=== PATIENT | male | born 1970 | race Two or more races ===

== ENCOUNTER 2022-09-28 00:52 | Inpatient (IN) | payer MEDICAID, OTHER ==
[~2022-09-28] VITALS: Ht 177.8 cm; Wt 83.9 kg
[2022-09-28] MEDS ORDERED: LORAZEPAM 1 MG TABLET PO ONE (01:00)
--- NOTE | 2022-09-28 01:00 | NUR ---
BIBRA 39 FROM [place] FOR L ARM TWICHING. A, OX4 ON TRIAGE. PATIENT IS RESPONSIVE TO VERBAL/NON VERBAL STIMULI. WITH UNCONTROLABLE TWITCHING. PLACED COMFORTABLY IN BED. ATTACHED TO MONITOR. VITALS CHECKED.
[2022-09-28] MEDS ORDERED: LORAZEPAM INJ 2 MG/ML VIAL ONE ×2 (01:06→03:08)
--- NOTE | 2022-09-28 01:15 | NUR ---
EKG DONE AT BEDSIDE.
[2022-09-28] MEDS ORDERED: LORAZEPAM INJ 2 MG/ML VIAL IV ONE ×2 (01:30→03:30)
--- NOTE | 2022-09-28 01:30 | NUR ---
IV CAROL G20 INSERTED ON BOTH WRIST. BLOOD DRAWN AND SENT TO LAB
[2022-09-28 01:33] LABS: BASOPHILS % (AUTO) 0.4 % (0.0-2.0); EOSINOPHILS % (AUTO) 2.3 % (0.0-6.0); HEMATOCRIT 36 % (39-51); HEMOGLOBIN 12.2 g/dL (13.5-17.5); LYMPHOCYTES # (AUTO) 0.8 K/uL (0.8-4.8); MEAN CORPUSCULAR HGB CONC 34 g/dl (31.0-36.0); MEAN CORPUSCULAR VOLUME 84 fL (80-96); MONOCYTES # (AUTO) 0.4 K/uL (0.1-1.30); MONOCYTES % (AUTO) 4.1 % (2.0-12.0); NEUTROPHILS # (AUTO) 7.5 K/uL (1.8-8.9); NEUTROPHILS % (AUTO) 84.2 % (43.0-81.0); PLATELET COUNT (AUTO) 222 K/uL (150-450); RED BLOOD CELL COUNT(AUTO) 4.27 MIL/uL (4.5-6.0)
--- NOTE | 2022-09-28 01:35 | NUR ---
BROUGHT TO CT DEPT
--- NOTE | 2022-09-28 01:45 | NUR ---
COVID SWAB DONE AND SENT TO LAB.
[2022-09-28 02:07] LABS: CALCIUM, SERUM 9.3 mg/dL (8.5-10.1); CREATININE 1.5 mg/dL (0.6-1.3)
[2022-09-28 02:13] LABS: ALBUMIN 3.7 g/dL (3.4-5.0); BILIRUBIN,DIRECT 0.2 mg/dL (0.0-0.2); BILIRUBIN,TOTAL 0.5 mg/dL (0.2-1.0); TOTAL PROTEIN, SERUM 7.1 g/dL (6.4-8.2)
--- NOTE | 2022-09-28 02:44 | NUR ---
mother reports patient is still having jerking motion for 10-15 seconds at a time a few minutes apart. made aware.
--- NOTE | 2022-09-28 02:50 | NUR ---
patient asking for water. MD states ok to give water. swallowed water with no difficulty.
--- NOTE | 2022-09-28 03:05 | NUR ---
informed MD that patient had body jerking, more aggesively. MD will place orders.
--- NOTE | 2022-09-28 03:10 | NUR ---
patient mother refused ativan 2mg iv d/t patient history of drug abuse. made aware.
[2022-09-28] MEDS ORDERED: LEVETIRACETAM (500MG) 500 MG/5 ML VIAL IV ONE (03:11)
[2022-09-28] MEDS: LEVETIRACETAM (500MG) 1,000 MG in IV NS 0.9% 100 ML IV SCH ×2 (03:16→15:58)
--- NOTE | 2022-09-28 03:18 | NUR ---
SPOKE TO BRICE MCKEON TRAINING ENGINEER WHO IS WILLING TO TRANSFER PT TO [facility]; HOWEVER THE BED WILL NOT BE AVAILABLE UNTIL AFTER SHIFT CHANGE. REQUESTED BRICE AN ALTERNATIVE WAY , POSSIBLY AUTH TO ADMIT THE PATIENT AT [facility], TO AVAOID THE DELAY OF CARE. SHE WILL PRESENT THE CASE TO HER WELDING LEAD BURNER AND WILL GET PAIZ TO US.
[2022-09-28] MEDS ORDERED: TRAZ-182 PO (03:25)
[2022-09-28] MEDS ORDERED: FERR325T23 PO (03:25)
[2022-09-28] MEDS ORDERED: LISI40TA13 PO (03:25)
[2022-09-28] MEDS ORDERED: NIFE-34 PO (03:25)
[2022-09-28] MEDS ORDERED: LABE200T5 PO (03:25)
[2022-09-28] MEDS ORDERED: ATOR80TA PO (03:25)
[2022-09-28] MEDS ORDERED: CLOP75TA15 PO (03:25)
[2022-09-28] MEDS ORDERED: PANT40TA49 PO (03:25)
--- NOTE | 2022-09-28 03:55 | NUR ---
RECEIVED A CALL FROM CM OF REGAL "BRICE". PT IS FOR POSSIBLE ADMISSION AT [facility] BUT AT THE MOMENT NO BED AVAILABLE. THEY WILL TRY TO GET BED AFTER 0730H. PER CM, IF [facility] MD CANNOT WAIT TO TRANSFER THE PATIENT AND ADMITTED THE PT INSTEAD IN [facility], THEY HAVE NO CHOICE BUT TO GIVE US AUTH. I EXPLAINED TO MS NARVAEZ THAT POLICY, WE NEED AN AUTH FROM INSURANCE SO WE CAN PROCEED WITH THE ADMISSION. DR BOWENS IS MADE AWARE.
--- NOTE | 2022-09-28 04:51 | NUR ---
Motherdorota # [phone]. call when patient is being transferred/ updates. mother also request no addictive medications to be given to patient.
--- NOTE | 2022-09-28 05:59 | NUR ---
DR BOWENS ON THE PHONE WITH MIKE DALLAS
--- NOTE | 2022-09-28 06:33 | NUR ---
urine collected pending lab to worm picker
--- NOTE | 2022-09-28 07:20 | NUR ---
RECEIVED PT FROM ANISH BRIONES PT ASLEEPY ARUSABLE WHEN CALL NAME
[2022-09-28 07:49] LABS: BILIRUBIN,URINE NEGATIVE (NEGATIVE); COLOR,URINE YELLOW (YELLOW); LEUKOCYTE ESTERASE ,URINE NEGATIVE (NEGATIVE); NITRITE, URINE NEGATIVE (NEGATIVE); PROTEIN,URINE NEGATIVE (NEGATIVE); UGLUCOSE NEGATIVE (NEGATIVE); UROBILINOGEN,URINE 0.2 EU/dL (0.2)
--- NOTE | 2022-09-28 07:56 | NUR ---
BRICE [facility] [phone] REQUESTING COVID RESULT FAXED TO HER.
--- NOTE | 2022-09-28 08:42 | NUR ---
RESTING AND ASLEEPY NO SOB
--- NOTE | 2022-09-28 08:50 | NUR ---
DR. URRUTIA AT BEDSIDE
--- NOTE | 2022-09-28 09:16 | NUR ---
DANILO REGAL [phone]
--- NOTE | 2022-09-28 10:02 | NUR ---
WATING FOR HOSPITALE AND TRANSFER
--- NOTE | 2022-09-28 10:32 | NUR ---
MOTHER AT BED CONDTION UP DATE AND PLAN OF CARE
--- NOTE | 2022-09-28 11:27 | NUR ---
DANILO CALLED REGAL GIVING AUTH [id number] TELE BED.
--- NOTE | 2022-09-28 11:30 | NUR ---
CALLED DR. URRUTIA. WILL GIVE VERBAL ORDERS. REQUESTING CONSULT WITH DR. SOLITARIO
--- NOTE | 2022-09-28 11:34 | NUR ---
CALLED DR. SOLITARIO [phone] INFORMED ABOUT THE REQUEST OF CONSULT FROM DR. URRUTIA.
--- NOTE | 2022-09-28 11:51 | NUR ---
RECEIVED ORDER VIA TELEPHONE FROM DR. URRUTIA. WRITTEN ORDERS PLACED IN CHART
--- NOTE | 2022-09-28 12:14 | NUR ---
GOT BED 323-1 ADMITTING INFORMED.
--- NOTE | 2022-09-28 12:26 | NUR ---
HAND OFF MALLORY.TIM RN TO ROOM 323-1VIA THERESE PHELAN VS
--- NOTE | 2022-09-28 12:55 | NUR ---
GREASE CUP FILLERARSON AND BOMB INVESTIGATOR to [facility] NOTE Patient arrived to [facility], Room 323 - bed 1, via gurney from the Emergency Dept. at 12:50 hours, alert, oriented x 4, denying having any pain nor distress. Patient on room air with oxygen saturation of 99%, lung sound clear to auscultation throughout. Patient has intact, patent peripheral IV catheters, 20 gauges, one to each lower arm, flush well and saline locked. Seizure precautions and fall precautions in place. Will continue to care for and monitor patient per MD POC.
--- NOTE | 2022-09-28 12:55 | NUR ---
Addendum Patient's telemetry showing sinus rythym in the 70s.
[2022-09-28 13:25] VITALS: BP 148/82
[2022-09-28 16:07] VITALS: BP 115/85
[2022-09-28] MEDS ORDERED: TRAZODONE 50 MG TABLET PO PRN (18:00)
[2022-09-28 18:18] LABS: BASOPHILS % (AUTO) 0.4 % (0.0-2.0); HEMATOCRIT 33 % (39-51); HEMOGLOBIN 11.4 g/dL (13.5-17.5); LYMPHOCYTES # (AUTO) 1.1 K/uL (0.8-4.8); LYMPHOCYTES % (AUTO) 14.4 % (20.0-44.0); MEAN CORPUSCULAR HGB CONC 35 g/dl (31.0-36.0); MEAN CORPUSCULAR VOLUME 83 fL (80-96); MONOCYTES # (AUTO) 0.5 K/uL (0.1-1.30); MONOCYTES % (AUTO) 6.7 % (2.0-12.0); NEUTROPHILS # (AUTO) 5.6 K/uL (1.8-8.9); NEUTROPHILS % (AUTO) 76.5 % (43.0-81.0); PLATELET COUNT (AUTO) 212 K/uL (150-450); RED BLOOD CELL COUNT(AUTO) 3.98 MIL/uL (4.5-6.0); WHITE BLOOD COUNT (AUTO) 7.3 K/uL (4.3-11.0)
[2022-09-28] MEDS: IV 1/2NS 1000 ML 1,000 ML IV PRN (18:25)
--- NOTE | 2022-09-28 19:00 | NUR ---
DYNAMOMETER MECHANIC CLOSING NOTE (DAYSHIFT) Patient completed his stat EEG, results pending. Stat ordered MRI with and without contrast not yet done, MRI checklist/questionnaire completed and signed by patient in medical chart. Patient continues on room air in no respiratory distress, calm, alert, oriented x 4, and cooperative. Seizure and fall precautions maintained. Vital signs stable. No c/o pain. No signs nor symptoms of sezure activity noted. All prescribed medications given per MD orders. Will endorse to night nurse, Liyah Domingo, for RYLAN.
[2022-09-28 19:06] LABS: ALBUMIN 3.5 g/dL (3.4-5.0); BILIRUBIN,TOTAL 0.6 mg/dL (0.2-1.0); CALCIUM, SERUM 8.9 mg/dL (8.5-10.1); CREATININE 1.5 mg/dL (0.6-1.3); POTASSIUM 3.4 mmol/L (3.5-5.1); TOTAL PROTEIN, SERUM 6.6 g/dL (6.4-8.2)
--- NOTE | 2022-09-28 19:10 | NUR ---
GENERAL LITHOGRAPHIC WORKER OPENING NOTE PATIENT IS SLEEPING IN BED, EASILY BEING AROUSED. HE IS ALERT AND ORIENTED, AO X 4. PT IS ON RA, TOLERATING WELL. NO S/S OF SOB OR DISTRESS. PT IS ON EXTERNAL VIDEOGAME DESIGNER, ON THE MONITOR, HIS HEART RHYTHM IS SR / SB WITH HR BETWEEN 50S TO 60S. IV ACCESS IS AT HIS LEFT FA, #20G, RUNNING 1/2 NS @ 75 ML/HR. IV IS PATENT AND INTACT. SAFETY MEASURES IN PLACE: BED IN LOWEST AND LOCKED POSITION; SIDE RAILS UP X2, CALL LIGHT AND TABLE ARE WITHIN REACH. WILL CONTINUE MONITORING THE PT AND PROVIDE THE CARE PT NEEDS.
[2022-09-28] MEDS: LABETALOL HCL (100MG) 100 MG TABLET PO SCH (19:12)
[2022-09-28 20:00] VITALS: BP 143/99
--- NOTE | 2022-09-28 20:07 | NUR ---
POLICE COMMANDING OFFICER NOTE PATIENT HAS NEW LAB RESULT CAME IN WITH SERUM POTASSIUM LEVEL: 3.4. TEXT DR. YOUNG TO NOTIFY MD AND RECEIVED NEW ORDER.
[2022-09-28] MEDS ORDERED: POTASSIUM CHLORIDE 20 MEQ TAB.PRT.SR PO ONE (20:30)
[2022-09-28] MEDS: LEVETIRACETAM (250 MG) 250 MG TABLET PO SCH (21:44)
[2022-09-28] MEDS: ATORVASTATIN 40 MG TABLET PO SCH (21:44)
[2022-09-29] VITALS: BP 151/81
[2022-09-29 04:00] VITALS: BP 159/97
[2022-09-29] MEDS: IV 1/2NS 1000 ML 1,000 ML IV PRN (04:19)
--- NOTE | 2022-09-29 05:52 | NUR ---
SIGNAL FITTER NOTIFIED VIA TEXT.
--- NOTE | 2022-09-29 06:52 | NUR ---
DEPILATORY PAINTER CLOSING NOTE PATIENT IS SLEEPING IN BED, EASILY BEING AROUSED. HE IS ALERT AND ORIENTED, AO X 4. PT IS ON RA, TOLERATING WELL. NO S/S OF SOB OR DISTRESS. PT IS ON EXTERNAL KETTLE FRY COOK OPERATOR, ON THE MONITOR, HIS HEART RHYTHM IS SR / SB WITH HR BETWEEN 50S TO 60S. IV ACCESS IS AT HIS LEFT FA, #20G, RUNNING 1/2 NS @ 75 ML/HR. IV IS PATENT AND INTACT. NO SEIZURES DURING THE SHIFT. SAFETY MEASURES IN PLACE: BED IN LOWEST AND LOCKED POSITION; SIDE RAILS UP X2, CALL LIGHT AND TABLE ARE WITHIN REACH. WILL ENDORSE NEXT SHIFT NURSE FOR CONTINUING PT CARE.
--- NOTE | 2022-09-29 07:55 | NUR ---
RN OPENING NOTE- PATIENT AWAKE, AO X 4. PT IS ON RA, TOLERATING WELL. NO S/S OF SOB OR DISTRESS. PT IS ON TELE MONITOR, HIS HEART RHYTHM IS SR / SB WITH HR 64. IV ACCESS IS AT HIS LEFT FA, #20G, RUNNING 1/2 NS @ 75 ML/HR. IV IS PATENT AND INTACT. NO SEIZURES DURING THE SHIFT. SAFETY MEASURES IN PLACE: BED IN LOWEST AND LOCKED POSITION; SIDE RAILS UP X2, CALL LIGHT AND TABLE ARE WITHIN REACH. MONITOR / ASSIST
[2022-09-29 08:00] VITALS: BP 157/100
[2022-09-29] MEDS: NIFEdipine XL (30MG) 30 MG TAB PO SCH (08:41)
[2022-09-29] MEDS: CLOPIDOGREL BISULFATE 75 MG TABLET PO SCH (08:41)
[2022-09-29] MEDS: FERROUS SULFATE (325 MG) 325 MG/TAB TABLET PO SCH (08:41)
[2022-09-29] MEDS: LABETALOL HCL (100MG) 100 MG TABLET PO SCH ×2 (08:41→16:15)
[2022-09-29] MEDS: LEVETIRACETAM (250 MG) 250 MG TABLET PO SCH ×2 (08:41→21:29)
[2022-09-29] MEDS: LISINOPRIL (20MG) 20 MG TABLET PO SCH (08:41)
[2022-09-29] MEDS: PANTOPRAZOLE 40 MG TABLET.DR PO SCH (08:42)
[2022-09-29] MEDS ORDERED: POTASSIUM CHLORIDE 20 MEQ TAB.PRT.SR PO ONE (09:00)
[2022-09-29] MEDS ORDERED: TRIPHALA PO (11:13)
[2022-09-29] MEDS ORDERED: MELA5TAB PO (11:13)
[2022-09-29 16:10] VITALS: BP 191/95
[2022-09-29] MEDS ORDERED: GADOTERATE MEGLUMINE 10 MMOL/20 ML VIAL IV ONE (16:58)
[2022-09-29] MEDS ORDERED: LEVE250T2 PO (17:41)
--- NOTE | 2022-09-29 18:38 | NUR ---
RN NOTE- EEG AND MRI SHOWED NO NEW INFARCT OR ISSUES. DR WEINSTEIN CLEARED FOR DC FRO M NEURO PERSPECTIVE. DR RURUTIA ORDERED PT DC TOMORROW MORNING. NEEDS ATTENDED. SIDE RAILS UP, GABE LIGHT IN REACH LEFT HAND. MONITOR / ASSIST
--- NOTE | 2022-09-29 19:30 | NUR ---
RN Opening Notes Received pt in bed, awake. AOx3. On RA and tolerating well. No SOB noted. No s/sx of respiratory distress noted. IV access in LFA #20G. IV is intact, patent, and flushing well. Safety precautions in place: bed in lowest, locked position, siderails upX2, and brakes on. Table and call light within within reach. All needs met at this time.
[2022-09-29 20:00] VITALS: BP 113/54
[2022-09-29] MEDS: ATORVASTATIN 40 MG TABLET PO SCH (21:26)
[2022-09-30 07:00] VITALS: BP 130/79
--- NOTE | 2022-09-30 07:01 | NUR ---
RN Opening Notes Received pt in bed, awake. AOx3. On RA and tolerating well. No SOB noted. No s/sx of respiratory distress noted. IV access in LFA #20G. IV is intact, patent, and flushing well. All orders carried out. All needs met. Pt kept clean and dry. Safety precautions in place: bed in lowest, locked position, siderails upX2, and brakes on. Table and call light within within reach. Will endorse to oncoming shift for RYLAN. Addendum: 09/30/22 at 0704 by MIKAELA BURK RN RN Closing Notes
--- NOTE | 2022-09-30 07:26 | NUR ---
RN OPENING NOTE RECEIVED PATIENT IN BED AWAKE, A/O X4, VERBALLY RESPONSIVE AND ABLE TO MAKE NEEDS KNOWN. NO SIGNS OF ACUTE DISTRESS NOTED. DENIES ANY PAIN OR DISCOMFORT AT THIS TIME. ON ROOM AIR, TOLERATING WELL. NOTED WITH IV ACCESS ON LEFT FOREARM #20G, INTACT AND PATENT, SALINE LOCKED. SEIZURE AND SAFETY MEASURE IN PLACE, BED IN LOW AND LOCKED POSITION, SIDE RAILS UP, CALL LIGHT PLACED WITHIN EASY REACH. WILL CONTINUE TO MONITOR PATIENT.
[2022-09-30] MEDS: LISINOPRIL (20MG) 20 MG TABLET PO SCH (08:14)
[2022-09-30] MEDS: PANTOPRAZOLE 40 MG TABLET.DR PO SCH (08:14)
[2022-09-30] MEDS: NIFEdipine XL (30MG) 30 MG TAB PO SCH (08:14)
[2022-09-30] MEDS: LEVETIRACETAM (250 MG) 250 MG TABLET PO SCH (08:14)
[2022-09-30 08:15] VITALS: BP 130/79
[2022-09-30] MEDS: FERROUS SULFATE (325 MG) 325 MG/TAB TABLET PO SCH (08:15)
[2022-09-30] MEDS: LABETALOL HCL (100MG) 100 MG TABLET PO SCH (08:15)
[2022-09-30] MEDS: CLOPIDOGREL BISULFATE 75 MG TABLET PO SCH (08:15)
[2022-09-30 08:41] LABS: CALCIUM, SERUM 9.4 mg/dL (8.5-10.1); CREATININE 1.3 mg/dL (0.6-1.3); POTASSIUM 4.4 mmol/L (3.5-5.1)
[2022-09-30] MEDS ORDERED: PNEUMOCOCCAL 23-VAL P-SAC VAC 0.5 ML VIAL SQ ONE (11:00)
--- NOTE | 2022-09-30 16:36 | NUR ---
BIODIESEL PRODUCT DEVELOPMENT MANAGER NOTE PATIENT DISCHARGED TO BOARD AND CARE: THE [facility] IN STABLE CONDITION. PATIENT REMAINS AWAKE, A/O X4, VERBALLY RESPONSIVE AND ABLE TO MAKE NEEDS KNOWN. IV ACCESS REMOVED, NO BLEEDING NOTED, PRESSURE DRESSING APPLIED TO SITE. ALL BELONGINGS ACCOUNTED FOR, FORM SIGNED BY PATIENT. HEALTH TEACHINGS AND DISCHARGE INSTRUCTIONS PROVIDED TO PATIENT AND MOTHER WITH VERBALIZATION OF UNDERSTANDING. WRITTEN MEDICATION PRESCRIPTION GIVEN TO PATIENT'S MOTHER. HANDOFF REPORT GIVEN TO ELISA FROM [facility]. PATIENT PICKED UP BY [facility] VIA W/C ACCOMPANIED BY MOTHER KARISHMALAUREN UNIT @1630. CN AWARE OF DISCHARGE.
== END 2022-09-30 16:30 | DRG 53 ==
LOC: ER 00:54 → TELE 12:21 → MED 09-29 18:30
PROVIDERS: ADMIT Internal Medicine; ATTEND Internal Medicine
DX: G40.909 Epilepsy, unspecified, not intractable, without status epilepticus (principal); I69.354 Hemiplegia and hemiparesis following cerebral infarction affecting left non-dominant side; G93.89 Other specified disorders of brain; I12.9 Hypertensive chronic kidney disease with stage 1 through stage 4 chronic kidney disease, or unspecified chronic kidney disease; N18.30 Chronic kidney disease, stage 3 unspecified; Z20.822 Contact with and (suspected) exposure to COVID-19; Z79.899 Other long term (current) drug therapy; Z79.02 Long term (current) use of antithrombotics/antiplatelets; E78.5 Hyperlipidemia, unspecified; F19.11 Other psychoactive substance abuse, in remission; G31.9 Degenerative disease of nervous system, unspecified
CPT/HCPCS: 36415; 70450-TC; 70553-TC; 76770-TC; 80048-TC; 80053-TC; 80076-TC; 85025-TC; 87081-TC; 90732; 95819-TC; A4223; A4349; A9575; C9803; G0378; J1953; J2060; J3490; J7030